=== PATIENT | male | born 1980 | race African-American/Black ===

== ENCOUNTER 2018-02-19 09:35 | Emergency (ER) | payer MEDICAID ==
[~2018-02-19] VITALS: Ht 188 cm; Wt 120.0 kg
[~2018-02-19 09:35] MED LIST: DIVA250T4
[2018-02-19] MEDS ORDERED: SODIUM CHLORIDE 0.9% 1,000 ML IV ONE (10:37)
[2018-02-19 10:47] LABS: BASOPHILS % 0.6 % (0.0-2.0); EOSINOPHILS % 1.7 % (0.0-5.0); HEMATOCRIT. 44.8 % (42.0-52.0); HEMOGLOBIN. 14.8 g/dL (14.0-18.0); LYMPHOCYTES % 20.1 % (20.0-50.0); MEAN CORPUSCULAR HEMOGLOBIN 30.8 pg (28.0-32.0); MEAN PLATELET VOLUME 8.4 fl (7.4-10.4); MONOCYTES % 5.6 % (2.0-8.0); PLATELET 229 x1000/uL (130-400); RED BLOOD CELL COUNT 4.82 mill/uL (4.7-6.1); RED CELL DISTRIBUTION WIDTH 12.7 % (11.6-14.6)
[2018-02-19 10:57] LABS: CHLORIDE 100 mEq/L (98-107)
[2018-02-19 12:29] VITALS: BP 116/81
== END 2018-02-19 12:33 | disposition home or self-care (01) ==
LOC: ER 10:48
DX: E11.65 Type 2 diabetes mellitus with hyperglycemia (principal); E86.0 Dehydration; I10 Essential (primary) hypertension
CPT/HCPCS: 36415; 80053; 82962; 85025; 96360; 96361; 99285; J7030; Z7610